=== PATIENT | male | born 1995 | race Two or more races ===

== ENCOUNTER 2025-06-19 20:03 | Emergency (ER) | payer SELFPAY ==
[~2025-06-19] VITALS: Ht 188 cm; Wt 100.0 kg
[2025-06-19 20:57] VITALS: O2SAT 98
[2025-06-19] MEDS: KETOROLAC 15MG/ML VIAL IM ONE (22:06)
[2025-06-19] MEDS: IBUPROFEN 800MG TABLET PO ONE (23:00)
[2025-06-19] MEDS ORDERED: HYDR-4009 MT (23:53)
[2025-06-20 00:18] VITALS: BP 114/78; PULSE 98; RESP 20; TEMP 36.7; O2SAT 98
== END 2025-06-20 00:24 | disposition home or self-care (01) ==
LOC: ER 20:33
DX: S52.134A Nondisplaced fracture of neck of right radius, initial encounter for closed fracture (principal); Z79.899 Other long term (current) drug therapy; X58.XXXA Exposure to other specified factors, initial encounter; Y92.89 Other specified places as the place of occurrence of the external cause; Y93.51 Activity, roller skating (inline) and skateboarding; Y99.8 Other external cause status
CPT/HCPCS: 73080; 73090; 73110; 73130; 29105; 99284; Z7610; A6449; A4565; J1885